=== PATIENT | female | born 2005 | race Two or more races ===

== ENCOUNTER 2023-06-19 14:35 | Emergency (ER) | payer MEDICAID ==
[~2023-06-19] VITALS: Ht 162.6 cm; Wt 81.6 kg
[2023-06-19 15:05] LABS: *URINE HCG, QUAL NEGATIVE (NEGATIVE)
[2023-06-19] MEDS ORDERED: ONDA4TAB11 PO (15:25)
[2023-06-19] MEDS ORDERED: ALBU8.5H8 INH (15:25)
[2023-06-19 15:50] VITALS: BP 120/78; TEMP 98.7; O2SAT 99
== END 2023-06-19 15:51 | disposition home or self-care (01) ==
LOC: ER 14:35
DX: R05.9 Cough, unspecified (principal); R11.0 Nausea; R10.2 Pelvic and perineal pain; J45.909 Unspecified asthma, uncomplicated; Z79.899 Other long term (current) drug therapy
CPT/HCPCS: 71045; 84703; A4606; A4663